=== PATIENT | female | born 1950 | race Caucasian/White ===

== ENCOUNTER 2022-08-02 19:25 | Emergency (ER) | payer OTHER, MEDICAID ==
[~2022-08-02] VITALS: Ht 154.9 cm; Wt 108.9 kg
[~2022-08-02 19:25] MED LIST: ALPR0.25 PO; AMOX875T2 PO; APIX5TAB4 PO; CARV6.2554 PO; ESOM20CA PO; FLEC50TA2 PO; FURO-150 PO; LIP40 PO; NEU300 PO; PRO20 PO
[2022-08-02 19:55] VITALS: BP_SYST 149
[2022-08-02 20:44] LABS: BASOPHILS % (AUTO) 0.5 % (0.0-2.0); EOSINOPHILS # (AUTO) 0.2 K/uL (0.0-0.4); EOSINOPHILS % (AUTO) 2.1 % (0.0-4.0); HEMATOCRIT 32.7 % (36-48); HEMOGLOBIN 10.8 g/dL (12.0-16.0); LYMPHOCYTES # (AUTO) 2.1 K/uL (1.0-5.5); LYMPHOCYTES % (AUTO) 29.3 % (20.5-51.5); MEAN CORPUSCULAR HEMOGLOBIN 27 pg (27-31); MEAN CORPUSCULAR HGB CONC 33 % (32-36); MEAN CORPUSCULAR VOLUME 82 fL (79.0-98.0); MONOCYTES % (AUTO) 13.8 % (1.7-9.3); NEUTROPHILS # (AUTO) 3.9 K/uL (1.8-7.7); NEUTROPHILS % (AUTO) 54.3 % (40.0-70.0); PLATELET COUNT (AUTO) 335 K/uL (130-430); RED BLOOD CELL COUNT(AUTO) 3.98 MIL/uL (4.2-6.2); RED CELL DISTRIBUTION WIDTH 16.3 % (9.0-15.0); WHITE BLOOD COUNT (AUTO) 7.1 K/uL (4.8-10.8)
[2022-08-02 20:55] LABS: ALANINE AMINOTRANSFERASE 24 U/L (12-78); ALBUMIN 3.2 g/dL (3.4-4.8); ANION GAP 8 (5-15); ASPARTATE AMINOTRANSFERASE 21 U/L (10-37); CALCIUM 8.7 mg/dL (8.4-11.0); CHLORIDE 100 mmol/L (98-107); CREATININE 0.87 mg/dL (0.55-1.30); GLUCOSE 100 mg/dL (70-99); LIPASE 63 U/L (73-393); TOTAL BILIRUBIN 0.3 mg/dL (0.0-1.0); UREA NITROGEN, BLOOD 17 mg/dL (8-21)
[2022-08-02] MEDS ORDERED: ONDANSETRON 4 MG ODT TAB PO ONE (21:45)
[2022-08-02] MEDS ORDERED: KETOROLAC TROMETHAMINE 60 MG/2 ML VIAL IM ONE (21:45)
[2022-08-02 21:53] LABS: BILIRUBIN,URINE NEGATIVE (NEGATIVE); BLOOD, URINE NEGATIVE (NEGATIVE); CLARITY/URINE CLEAR (CLEAR); COLOR,URINE YELLOW (YELLOW); GLUCOSE,URINE NEGATIVE (NEGATIVE); KETONES,URINE NEGATIVE (NEGATIVE); LEUKOCYTE ESTERASE ,URINE TRACE (NEGATIVE); NITRITE, URINE NEGATIVE (NEGATIVE); PROTEIN URINE NEGATIVE (NEGATIVE); UROBILINOGEN,URINE 0.2 (0.2-1.0)
[2022-08-02 22:05] LABS: BACTERIA,URINE None Seen /HPF (None Seen); RBC,URINE 0-3 /HPF (0-3); WBC,URINE 0-3 /HPF (0-3)
[2022-08-02] MEDS ORDERED: CIPR500T5 PO (22:18)
[2022-08-02] MEDS ORDERED: IBUP-1971 PO (22:18)
[2022-08-02] MEDS ORDERED: ONDA8TAB60 PO (22:18)
[2022-08-02 22:44] VITALS: BP_SYST 147
== END 2022-08-02 22:44 | disposition home or self-care (01) ==
LOC: SED 19:25
DX: R10.31 Right lower quadrant pain (principal); R19.7 Diarrhea, unspecified; I10 Essential (primary) hypertension; E11.9 Type 2 diabetes mellitus without complications; K21.9 Gastro-esophageal reflux disease without esophagitis; I48.91 Unspecified atrial fibrillation; E78.00 Pure hypercholesterolemia, unspecified; Z79.899 Other long term (current) drug therapy
CPT/HCPCS: 99285; 74176; 80053; 81000; 83690; 85025; 36415; 76376; 96372; Q0162; J1885

== ENCOUNTER 2022-08-04 19:14 | Inpatient (IN) | payer OTHER, MEDICAID ==
[~2022-08-04] VITALS: Ht 154.9 cm; Wt 110.7 kg
[~2022-08-04 19:14] MED LIST changes: +CIPR500T5 PO; +IBUP-1971 PO; +ONDA8TAB60 PO
[2022-08-04 19:43] VITALS: BP_SYST 142
[2022-08-04] MEDS ORDERED: NITROGLYCERIN 0.4 MG TAB.SUBL SL ONE (20:15)
[2022-08-04 20:23] LABS: BASOPHILS % (AUTO) 0.4 % (0.0-2.0); EOSINOPHILS # (AUTO) 0.1 K/uL (0.0-0.4); EOSINOPHILS % (AUTO) 1.7 % (0.0-4.0); HEMATOCRIT 29.4 % (36-48); HEMOGLOBIN 9.8 g/dL (12.0-16.0); LYMPHOCYTES # (AUTO) 1.6 K/uL (1.0-5.5); LYMPHOCYTES % (AUTO) 20.3 % (20.5-51.5); MEAN CORPUSCULAR HEMOGLOBIN 28 pg (27-31); MEAN CORPUSCULAR HGB CONC 33 % (32-36); MEAN CORPUSCULAR VOLUME 83 fL (79.0-98.0); MONOCYTES % (AUTO) 13.1 % (1.7-9.3); NEUTROPHILS # (AUTO) 5.1 K/uL (1.8-7.7); NEUTROPHILS % (AUTO) 64.5 % (40.0-70.0); PLATELET COUNT (AUTO) 261 K/uL (130-430); RED BLOOD CELL COUNT(AUTO) 3.56 MIL/uL (4.2-6.2); RED CELL DISTRIBUTION WIDTH 16.3 % (9.0-15.0); WHITE BLOOD COUNT (AUTO) 7.8 K/uL (4.8-10.8)
[2022-08-04 20:51] LABS: ANION GAP 9 (5-15); CALCIUM 8.1 mg/dL (8.4-11.0); CHLORIDE 98 mmol/L (98-107); CREATININE 0.95 mg/dL (0.55-1.30); GLUCOSE 285 mg/dL (70-99); UREA NITROGEN, BLOOD 20 mg/dL (8-21)
[2022-08-04 20:58] LABS: ALANINE AMINOTRANSFERASE 19 U/L (12-78); ASPARTATE AMINOTRANSFERASE 12 U/L (10-37); TOTAL BILIRUBIN 0.4 mg/dL (0.0-1.0)
[2022-08-04] MEDS ORDERED: FUROSEMIDE 40 MG/4 ML VIAL IVP ONE (21:15)
[2022-08-04] MEDS ORDERED: LEVO125T PO (22:07)
[2022-08-04] MEDS ORDERED: FLEC100T2 PO (22:07)
[2022-08-04] MEDS ORDERED: EXEN2AUT SQ (22:07)
[2022-08-04] MEDS ORDERED: PRO20 PO (22:07)
[2022-08-04] MEDS ORDERED: LYR50 PO (22:07)
[2022-08-04] MEDS ORDERED: METF-518 PO (22:07)
[2022-08-04] MEDS ORDERED: FURO-149 PO (22:07)
[2022-08-04] MEDS ORDERED: ROPI2TAB29 PO (22:07)
[2022-08-04] MEDS ORDERED: ESOM20CA38 PO (22:07)
[2022-08-04] MEDS ORDERED: INSU100V7 SUBCUT (22:07)
[2022-08-04] MEDS ORDERED: LISI20TA30 PO (22:07)
[2022-08-04] MEDS ORDERED: METO-290 PO (22:07)
[2022-08-04] MEDS ORDERED: ZOLP10TA2 PO (22:07)
[2022-08-04] MEDS ORDERED: QUET400T PO (22:07)
[2022-08-04 23:08] VITALS: BP_SYST 144
[2022-08-04 23:30] VITALS: BP_SYST 144
[2022-08-05] MEDS ORDERED: ALPRAZolam 0.25 MG TABLET PO PRN (03:30)
[2022-08-05] MEDS ORDERED: ACETAMINOPHEN 325 MG TABLET PO PRN (03:30)
[2022-08-05 05:51] LABS: BASOPHILS % (AUTO) 0.4 % (0.0-2.0); EOSINOPHILS # (AUTO) 0.2 K/uL (0.0-0.4); EOSINOPHILS % (AUTO) 2.2 % (0.0-4.0); HEMATOCRIT 29.6 % (36-48); HEMOGLOBIN 9.6 g/dL (12.0-16.0); LYMPHOCYTES # (AUTO) 1.9 K/uL (1.0-5.5); LYMPHOCYTES % (AUTO) 25.2 % (20.5-51.5); MEAN CORPUSCULAR HEMOGLOBIN 27 pg (27-31); MEAN CORPUSCULAR HGB CONC 33 % (32-36); MEAN CORPUSCULAR VOLUME 83 fL (79.0-98.0); MONOCYTES # (AUTO) 1.2 K/uL (0.0-1.0); MONOCYTES % (AUTO) 15.9 % (1.7-9.3); NEUTROPHILS # (AUTO) 4.2 K/uL (1.8-7.7); NEUTROPHILS % (AUTO) 56.3 % (40.0-70.0); PLATELET COUNT (AUTO) 245 K/uL (130-430); RED BLOOD CELL COUNT(AUTO) 3.57 MIL/uL (4.2-6.2); RED CELL DISTRIBUTION WIDTH 16.3 % (9.0-15.0); WHITE BLOOD COUNT (AUTO) 7.5 K/uL (4.8-10.8)
[2022-08-05 05:57] LABS: ANION GAP 7 (5-15); CALCIUM 8.1 mg/dL (8.4-11.0); CHLORIDE 102 mmol/L (98-107); CREATININE 0.83 mg/dL (0.55-1.30); GLUCOSE 200 mg/dL (70-99); UREA NITROGEN, BLOOD 16 mg/dL (8-21)
[2022-08-05] MEDS: NORMAL SALINE 5 ML DISP.SYRIN IVF SCH ×3 (06:38→21:25)
[2022-08-05] MEDS: LEVOTHYROXINE SODIUM 0.075 MG TABLET PO SCH (06:39)
[2022-08-05] MEDS: LEVOTHYROXINE SODIUM 0.1 MG TABLET PO SCH (06:40)
[2022-08-05] MEDS: INSULIN REGULAR, HUMAN 100 UNITS/ML, 3 ML VIAL (humuLIN R) SUBCUT PRN ×4 (06:42→20:56)
[2022-08-05] MEDS ORDERED: LEVOTHYROXINE SODIUM 0.125 MG TABLET PO SCH (07:00)
[2022-08-05] MEDS ORDERED: EXENATIDE SUBCUT SCH (07:00)
[2022-08-05 07:30] VITALS: BP_SYST 148
[2022-08-05] MEDS: ONDANSETRON HCL 4 MG/2 ML VIAL IVP PRN ×2 (08:18→17:34)
[2022-08-05] MEDS: MORPHINE 2 MG/ML INJ. SYRINGE IVP PRN ×2 (08:19→17:36)
[2022-08-05 08:22] VITALS: BP_SYST 142
[2022-08-05] MEDS ORDERED: FLECAINIDE ACETATE 50 MG TABLET (TAMBOCOR) PO SCH (09:00)
[2022-08-05] MEDS ORDERED: CARVEDILOL 6.25 MG TABLET (COREG) PO SCH (09:00)
[2022-08-05] MEDS ORDERED: FUROSEMIDE 40 MG TABLET PO SCH (09:00)
[2022-08-05] MEDS: METOPROLOL SUCCINATE 25 MG TAB.SR.24H (TOPROL XL) PO SCH (09:07)
[2022-08-05] MEDS: PREGABALIN 25 MG CAPSULE (LYRICA) PO SCH ×2 (09:08→20:44)
[2022-08-05] MEDS: APIXABAN 2.5 MG TABLET PO SCH ×2 (09:09→20:53)
[2022-08-05] MEDS: FLUoxetine HCL 20 MG CAPSULE (PROzac) PO SCH (09:11)
[2022-08-05] MEDS: GABAPENTIN 300 MG CAPSULE PO SCH ×3 (09:12→20:44)
[2022-08-05] MEDS: METOCLOPRAMIDE HCL 10 MG TABLET PO SCH (09:13)
[2022-08-05] MEDS: PANTOPRAZOLE SODIUM 40 MG TAB PO SCH (09:14)
[2022-08-05] MEDS: LORazepam 2 MG/ML VIAL IVP PRN (11:11)
[2022-08-05 11:33] VITALS: BP_SYST 150
[2022-08-05 16:48] VITALS: BP_SYST 133
[2022-08-05] MEDS: FUROSEMIDE 40 MG/4 ML VIAL IVP SCH (16:57)
[2022-08-05 20:15] VITALS: BP_SYST 97
[2022-08-05] MEDS: ZOLPIDEM TARTRATE 5 MG TABLET PO PRN (20:44)
[2022-08-05] MEDS: roPINIRole HCL 0.25 MG ( REQUIP )TABLET PO SCH (20:44)
[2022-08-05] MEDS: QUEtiapine FUMARATE 100 MG TABLET PO SCH (20:44)
[2022-08-05] MEDS: lisinopriL 20 MG TABLET PO SCH (20:45)
[2022-08-05] MEDS: ATORVASTATIN 20 MG TABLET PO SCH (20:45)
[2022-08-06 00:25] VITALS: BP_SYST 126
[2022-08-06 05:07] LABS: BASOPHILS % (AUTO) 0.2 % (0.0-2.0); EOSINOPHILS # (AUTO) 0.2 K/uL (0.0-0.4); EOSINOPHILS % (AUTO) 2.9 % (0.0-4.0); HEMATOCRIT 29.1 % (36-48); HEMOGLOBIN 9.6 g/dL (12.0-16.0); LYMPHOCYTES # (AUTO) 2.1 K/uL (1.0-5.5); LYMPHOCYTES % (AUTO) 35.7 % (20.5-51.5); MEAN CORPUSCULAR HEMOGLOBIN 27 pg (27-31); MEAN CORPUSCULAR HGB CONC 33 % (32-36); MEAN CORPUSCULAR VOLUME 82 fL (79.0-98.0); MONOCYTES % (AUTO) 16.8 % (1.7-9.3); NEUTROPHILS # (AUTO) 2.6 K/uL (1.8-7.7); NEUTROPHILS % (AUTO) 44.4 % (40.0-70.0); PLATELET COUNT (AUTO) 260 K/uL (130-430); RED BLOOD CELL COUNT(AUTO) 3.55 MIL/uL (4.2-6.2); RED CELL DISTRIBUTION WIDTH 16.5 % (9.0-15.0); WHITE BLOOD COUNT (AUTO) 5.8 K/uL (4.8-10.8)
[2022-08-06 05:29] LABS: ALANINE AMINOTRANSFERASE 19 U/L (12-78); ALBUMIN 2.7 g/dL (3.4-4.8); ANION GAP 6 (5-15); ASPARTATE AMINOTRANSFERASE 12 U/L (10-37); CALCIUM 8.2 mg/dL (8.4-11.0); CHLORIDE 96 mmol/L (98-107); CREATININE 0.99 mg/dL (0.55-1.30); GLUCOSE 172 mg/dL (70-99); TOTAL BILIRUBIN 0.5 mg/dL (0.0-1.0); UREA NITROGEN, BLOOD 17 mg/dL (8-21)
[2022-08-06 06:00] VITALS: BP_SYST 124
[2022-08-06] MEDS: LEVOTHYROXINE SODIUM 0.1 MG TABLET PO SCH (06:12)
[2022-08-06] MEDS: LEVOTHYROXINE SODIUM 0.075 MG TABLET PO SCH (06:12)
[2022-08-06] MEDS: NORMAL SALINE 5 ML DISP.SYRIN IVF SCH ×3 (06:13→22:00)
[2022-08-06] MEDS: FUROSEMIDE 40 MG/4 ML VIAL IVP SCH (06:14)
[2022-08-06] MEDS: INSULIN REGULAR, HUMAN 100 UNITS/ML, 3 ML VIAL (humuLIN R) SUBCUT PRN ×3 (06:26→17:04)
[2022-08-06 07:39] VITALS: BP_SYST 107
[2022-08-06] MEDS: METOCLOPRAMIDE HCL 10 MG TABLET PO SCH (08:40)
[2022-08-06] MEDS: PREGABALIN 25 MG CAPSULE (LYRICA) PO SCH ×2 (08:41→21:32)
[2022-08-06] MEDS: GABAPENTIN 300 MG CAPSULE PO SCH ×3 (08:42→21:32)
[2022-08-06] MEDS: PANTOPRAZOLE SODIUM 40 MG TAB PO SCH (08:42)
[2022-08-06] MEDS: FLUoxetine HCL 20 MG CAPSULE (PROzac) PO SCH (08:42)
[2022-08-06] MEDS: METOPROLOL SUCCINATE 25 MG TAB.SR.24H (TOPROL XL) PO SCH (08:43)
[2022-08-06] MEDS: FLECAINIDE ACETATE 50 MG TABLET (TAMBOCOR) PO SCH (08:43)
[2022-08-06] MEDS: APIXABAN 2.5 MG TABLET PO SCH ×2 (08:44→21:30)
[2022-08-06] MEDS: MORPHINE 2 MG/ML INJ. SYRINGE IVP PRN ×2 (09:08→21:33)
[2022-08-06 11:30] VITALS: BP_SYST 111
[2022-08-06 15:36] VITALS: BP_SYST 126
[2022-08-06 20:00] VITALS: BP_SYST 117
[2022-08-06] MEDS: roPINIRole HCL 0.25 MG ( REQUIP )TABLET PO SCH (21:27)
[2022-08-06] MEDS: ATORVASTATIN 20 MG TABLET PO SCH (21:28)
[2022-08-06] MEDS: QUEtiapine FUMARATE 100 MG TABLET PO SCH (21:31)
[2022-08-06] MEDS: lisinopriL 20 MG TABLET PO SCH (21:39)
[2022-08-07] VITALS: BP_SYST 121
[2022-08-07 04:10] LABS: BASOPHILS % (AUTO) 0.4 % (0.0-2.0); EOSINOPHILS # (AUTO) 0.1 K/uL (0.0-0.4); EOSINOPHILS % (AUTO) 1.8 % (0.0-4.0); HEMATOCRIT 28.1 % (36-48); HEMOGLOBIN 9.4 g/dL (12.0-16.0); LYMPHOCYTES # (AUTO) 2.4 K/uL (1.0-5.5); LYMPHOCYTES % (AUTO) 28.4 % (20.5-51.5); MEAN CORPUSCULAR HEMOGLOBIN 28 pg (27-31); MEAN CORPUSCULAR HGB CONC 33 % (32-36); MEAN CORPUSCULAR VOLUME 83 fL (79.0-98.0); MONOCYTES # (AUTO) 1.2 K/uL (0.0-1.0); MONOCYTES % (AUTO) 14.6 % (1.7-9.3); NEUTROPHILS # (AUTO) 4.6 K/uL (1.8-7.7); NEUTROPHILS % (AUTO) 54.8 % (40.0-70.0); PLATELET COUNT (AUTO) 252 K/uL (130-430); WHITE BLOOD COUNT (AUTO) 8.4 K/uL (4.8-10.8)
[2022-08-07 04:18] LABS: ANION GAP 4 (5-15); CALCIUM 8.4 mg/dL (8.4-11.0); CHLORIDE 95 mmol/L (98-107); CREATININE 1.08 mg/dL (0.55-1.30); GLUCOSE 285 mg/dL (70-99); UREA NITROGEN, BLOOD 21 mg/dL (8-21)
[2022-08-07] MEDS: NORMAL SALINE 5 ML DISP.SYRIN IVF SCH ×3 (04:57→21:05)
[2022-08-07] MEDS: INSULIN REGULAR, HUMAN 100 UNITS/ML, 3 ML VIAL (humuLIN R) SUBCUT PRN ×4 (06:00→21:28)
[2022-08-07 07:51] VITALS: BP_SYST 123
[2022-08-07] MEDS: FUROSEMIDE 20 MG TABLET PO SCH (08:58)
[2022-08-07] MEDS: FLUoxetine HCL 20 MG CAPSULE (PROzac) PO SCH (08:58)
[2022-08-07] MEDS: PANTOPRAZOLE SODIUM 40 MG TAB PO SCH (08:59)
[2022-08-07] MEDS: GABAPENTIN 300 MG CAPSULE PO SCH ×3 (08:59→21:00)
[2022-08-07] MEDS: METOCLOPRAMIDE HCL 10 MG TABLET PO SCH (08:59)
[2022-08-07] MEDS: PREGABALIN 25 MG CAPSULE (LYRICA) PO SCH ×2 (09:00→21:02)
[2022-08-07] MEDS: FLECAINIDE ACETATE 50 MG TABLET (TAMBOCOR) PO SCH (09:01)
[2022-08-07] MEDS: METOPROLOL SUCCINATE 25 MG TAB.SR.24H (TOPROL XL) PO SCH (09:02)
[2022-08-07] MEDS: APIXABAN 2.5 MG TABLET PO SCH ×2 (09:03→21:03)
[2022-08-07 11:21] VITALS: BP_SYST 104
[2022-08-07] MEDS: MORPHINE 2 MG/ML INJ. SYRINGE IVP PRN (15:54)
[2022-08-07 16:01] VITALS: BP_SYST 116
[2022-08-07 20:30] VITALS: BP_SYST 124
[2022-08-07] MEDS: roPINIRole HCL 0.25 MG ( REQUIP )TABLET PO SCH (21:00)
[2022-08-07] MEDS: lisinopriL 20 MG TABLET PO SCH (21:00)
[2022-08-07] MEDS: ATORVASTATIN 20 MG TABLET PO SCH (21:01)
[2022-08-07] MEDS: ZOLPIDEM TARTRATE 5 MG TABLET PO PRN (21:02)
[2022-08-07] MEDS: QUEtiapine FUMARATE 100 MG TABLET PO SCH (21:28)
[2022-08-08] MEDS: LORazepam 2 MG/ML VIAL IVP PRN (00:55)
[2022-08-08 01:27] VITALS: BP_SYST 159
[2022-08-08 05:46] LABS: BASOPHILS % (AUTO) 0.6 % (0.0-2.0); EOSINOPHILS # (AUTO) 0.2 K/uL (0.0-0.4); EOSINOPHILS % (AUTO) 2.4 % (0.0-4.0); HEMATOCRIT 30.5 % (36-48); HEMOGLOBIN 9.9 g/dL (12.0-16.0); LYMPHOCYTES # (AUTO) 2.2 K/uL (1.0-5.5); LYMPHOCYTES % (AUTO) 28.8 % (20.5-51.5); MEAN CORPUSCULAR HEMOGLOBIN 27 pg (27-31); MEAN CORPUSCULAR HGB CONC 33 % (32-36); MEAN CORPUSCULAR VOLUME 82 fL (79.0-98.0); MONOCYTES # (AUTO) 0.9 K/uL (0.0-1.0); MONOCYTES % (AUTO) 11.7 % (1.7-9.3); NEUTROPHILS # (AUTO) 4.3 K/uL (1.8-7.7); NEUTROPHILS % (AUTO) 56.5 % (40.0-70.0); PLATELET COUNT (AUTO) 271 K/uL (130-430); RED CELL DISTRIBUTION WIDTH 16.5 % (9.0-15.0); WHITE BLOOD COUNT (AUTO) 7.6 K/uL (4.8-10.8)
[2022-08-08] MEDS: LEVOTHYROXINE SODIUM 0.075 MG TABLET PO SCH (06:24)
[2022-08-08] MEDS: LEVOTHYROXINE SODIUM 0.1 MG TABLET PO SCH ×2 (06:25→06:29)
[2022-08-08] MEDS: NORMAL SALINE 5 ML DISP.SYRIN IVF SCH ×2 (06:26→15:32)
[2022-08-08] MEDS: INSULIN REGULAR, HUMAN 100 UNITS/ML, 3 ML VIAL (humuLIN R) SUBCUT PRN ×3 (06:28→17:03)
[2022-08-08 06:42] LABS: ANION GAP 6 (5-15); CALCIUM 8.8 mg/dL (8.4-11.0); CHLORIDE 96 mmol/L (98-107); CREATININE 0.86 mg/dL (0.55-1.30); FREE T4 (FREE THYROXINE) 0.9 ng/dL (0.6-1.6); GLUCOSE 270 mg/dL (70-99); THYROID STIMULATING HORMONE 2.77 uIu/mL (0.34-4.82); UREA NITROGEN, BLOOD 16 mg/dL (8-21)
[2022-08-08 08:10] VITALS: BP_SYST 145
[2022-08-08] MEDS: FLUoxetine HCL 20 MG CAPSULE (PROzac) PO SCH (08:50)
[2022-08-08] MEDS: GABAPENTIN 300 MG CAPSULE PO SCH ×2 (08:51→15:30)
[2022-08-08] MEDS: FUROSEMIDE 20 MG TABLET PO SCH (08:52)
[2022-08-08] MEDS: APIXABAN 2.5 MG TABLET PO SCH (08:53)
[2022-08-08] MEDS: PANTOPRAZOLE SODIUM 40 MG TAB PO SCH (08:54)
[2022-08-08] MEDS: METOCLOPRAMIDE HCL 10 MG TABLET PO SCH (08:54)
[2022-08-08] MEDS: METOPROLOL SUCCINATE 25 MG TAB.SR.24H (TOPROL XL) PO SCH (08:54)
[2022-08-08] MEDS: PREGABALIN 25 MG CAPSULE (LYRICA) PO SCH (08:57)
[2022-08-08] MEDS: FLECAINIDE ACETATE 50 MG TABLET (TAMBOCOR) PO SCH (09:07)
[2022-08-08] MEDS ORDERED: METO-540 PO (10:32)
[2022-08-08 11:20] VITALS: BP_SYST 129
[2022-08-08 11:25] VITALS: BP_SYST 138
[2022-08-08 15:01] VITALS: BP_SYST 138
[2022-08-08] MEDS: MORPHINE 2 MG/ML INJ. SYRINGE IVP PRN (17:04)
== END 2022-08-08 18:34 | disposition home or self-care (01) | DRG 189 ==
LOC: SED 19:14 → STU 21:24 → SMU 22:54 → STU 23:00 → SMU 08-07 15:14
PROVIDERS: ADMIT Preventive Medicine Preventive Medicine/Occupational Environmental Medicine; ATTEND Preventive Medicine Preventive Medicine/Occupational Environmental Medicine
DX: J96.01 Acute respiratory failure with hypoxia (principal); J81.1 Chronic pulmonary edema; I11.0 Hypertensive heart disease with heart failure; M94.0 Chondrocostal junction syndrome [Tietze]; I50.9 Heart failure, unspecified; I48.91 Unspecified atrial fibrillation; E11.9 Type 2 diabetes mellitus without complications; Z20.822 Contact with and (suspected) exposure to COVID-19
CPT/HCPCS: 36415; 71045; 80048; 80053; 83735; 83880; 84100; 84439; 84443; 84484; 85025; 93005; 93306; 93970; 97116-GP; 97530-GP; 99285; G0378; J1815; J1940; J2060; J2270; J2405; J8597

== ENCOUNTER 2022-08-16 19:24 | Inpatient (IN) | payer OTHER, MEDICAID ==
[~2022-08-16] VITALS: Ht 154.9 cm; Wt 109.3 kg
[~2022-08-16 19:24] MED LIST changes: +ESOM20CA38 PO; +EXEN2AUT SQ; +FLEC100T2 PO; +FURO-149 PO; +INSU100V7 SUBCUT; +LEVO125T PO; +LISI20TA30 PO; +LYR50 PO; +METF-518 PO; +METO-290 PO; +METO-540 PO; +QUET400T PO; +ROPI2TAB29 PO; +ZOLP10TA2 PO
[2022-08-16 19:38] VITALS: BP_SYST 132
--- NOTE | 2022-08-16 19:53 | NUR ---
PATIENT PRESENTS WITH PALIPITATIONS (HX AFIB), DIARRHEA, SOB, VITALS ARE STABLE
[2022-08-16 20:44] LABS: BASOPHILS % (AUTO) 0.4 % (0.0-2.0); EOSINOPHILS # (AUTO) 0.2 K/uL (0.0-0.4); EOSINOPHILS % (AUTO) 1.8 % (0.0-4.0); HEMATOCRIT 32.8 % (36-48); HEMOGLOBIN 10.8 g/dL (12.0-16.0); LYMPHOCYTES # (AUTO) 2.2 K/uL (1.0-5.5); LYMPHOCYTES % (AUTO) 24.7 % (20.5-51.5); MEAN CORPUSCULAR HEMOGLOBIN 27 pg (27-31); MEAN CORPUSCULAR HGB CONC 33 % (32-36); MEAN CORPUSCULAR VOLUME 83 fL (79.0-98.0); NEUTROPHILS # (AUTO) 5.5 K/uL (1.8-7.7); NEUTROPHILS % (AUTO) 62.1 % (40.0-70.0); PLATELET COUNT (AUTO) 354 K/uL (130-430); RED BLOOD CELL COUNT(AUTO) 3.97 MIL/uL (4.2-6.2); RED CELL DISTRIBUTION WIDTH 16.4 % (9.0-15.0); WHITE BLOOD COUNT (AUTO) 8.9 K/uL (4.8-10.8)
--- NOTE | 2022-08-16 21:02 | NUR ---
Placed in room 7 . Placed on traffic monitor specialist, blood pressure machine and pulse oximeter. To gown for exam. Side rails up. Report given to OSCAR ROBERTS.
--- NOTE | 2022-08-16 21:05 | NUR ---
ER at bedside examining patient.
[2022-08-16 21:10] LABS: ANION GAP 6 (5-15); CALCIUM 8.3 mg/dL (8.4-11.0); CHLORIDE 97 mmol/L (98-107); CREATININE 1.02 mg/dL (0.55-1.30); GLUCOSE 180 mg/dL (70-99); UREA NITROGEN, BLOOD 19 mg/dL (8-21)
--- NOTE | 2022-08-16 21:13 | NUR ---
Patient arrived to ED 7 for c/o heart palpitations and diarrhea. Patient had diarrhea intermittently 10 am on and off that black stool. Patient said that she was recently released from hospital on 08/08 for CHF. Patient said she had heart palpitations starting at 11 am off and on in the bathroom. Patient took imodium OTC and her "regular medications during the day, but can't remember off top of her head." Patient resting at the moment. Alert and oriented x4. Respiration even and unlabored.
[2022-08-16] MEDS ORDERED: PANTOPRAZOLE SODIUM 40 MG/VIAL (PROTONIX) IVP ONE (21:15)
[2022-08-16 21:28] LABS: ALANINE AMINOTRANSFERASE 17 U/L (12-78); ALBUMIN 3.1 g/dL (3.4-4.8); ASPARTATE AMINOTRANSFERASE 11 U/L (10-37); TOTAL BILIRUBIN 0.4 mg/dL (0.0-1.0)
--- NOTE | 2022-08-16 21:56 | NUR ---
Admit bed requested Patient will be admitted to care of . Admitted to TELE unit. Diagnosis GI BLEED Inpatient (Yes or No) YES Observation (Yes or No) NO Orientation concerns or request close to nursing station (Yes or No) NO Covid Status N/A On vent or bipap NO Isolation requirements NO Needs a sitter NO From Home (Yes or if No enter name of facility) YES Requires Dialysis (Yes or No) NO Med Rec Completed (Yes of No) YES
[2022-08-16] MEDS ORDERED: D5/0.45 NS 1,000 ML IV ONE (22:00)
[2022-08-16] MEDS ORDERED: INSU100I4 SUBQ (22:04)
[2022-08-16] MEDS ORDERED: INSU100V38 SQ (22:04)
[2022-08-16 22:48] LABS: BILIRUBIN,URINE NEGATIVE (NEGATIVE); COLOR,URINE YELLOW (YELLOW); GLUCOSE,URINE TRACE (NEGATIVE); KETONES,URINE NEGATIVE (NEGATIVE); LEUKOCYTE ESTERASE ,URINE TRACE (NEGATIVE); NITRITE, URINE NEGATIVE (NEGATIVE); PROTEIN URINE NEGATIVE (NEGATIVE); UROBILINOGEN,URINE 0.2 (0.2-1.0)
[2022-08-16 22:58] LABS: BLOOD, URINE TRACE (NEGATIVE); CLARITY/URINE SLIGHTLY CLOUDY (CLEAR)
[2022-08-16 23:33] LABS: BACTERIA,URINE MODERATE /HPF (None Seen)
--- NOTE | 2022-08-17 00:21 | NUR ---
Patient will be admitted to care of ALEJANDRA Holden. Admitted to unit. Will go to room . Belongings list completed. Complete and up to date summary report printed. SBAR report to be given at bedside with opportunity for questions.
--- NOTE | 2022-08-17 00:21 | NUR ---
Patient didn't want to change into hospital gown.
--- NOTE | 2022-08-17 00:28 | NUR ---
INITIAL ASSESSMENT NOTES; admitted a72 y/o female from ER with DX GIB, had dark loose stool today with palpitations, no diarrhea during stay in ER. pt. oriented to room , use of call light. denies any pain at this time. placed on electronic tester. call light within reach.
[2022-08-17 00:41] VITALS: BP_SYST 141
--- NOTE | 2022-08-17 02:00 | NUR ---
NOTES: pt. checked, been sleeping. oil dispatcher shows sinus rhythm. IVF infusing.
--- NOTE | 2022-08-17 04:54 | NUR ---
CONSULTATION PAGED/CALLED Reason for Consultation: GI BLEED Person Who was Notified: ARTEMIO Consulting Physician: OBEY Tomato Grader Specialty: GI Ordering Physician: SHEILA
--- NOTE | 2022-08-17 05:00 | NUR ---
NOTES: GI consult with Dr. Jameson today. noted multiple bruising on upper and lower extremities. on clear liquid.
--- NOTE | 2022-08-17 08:00 | NUR ---
Resting with no complaints,tolerating diet ,continue with plan of care.
[2022-08-17] MEDS ORDERED: PANTOPRAZOLE SODIUM 40 MG/VIAL (PROTONIX) IVP ONE (09:45)
[2022-08-17 11:23] VITALS: BP_SYST 141
[2022-08-17] MEDS: INSULIN REGULAR, HUMAN 100 UNITS/ML, 3 ML VIAL (humuLIN R) SUBCUT PRN ×3 (11:57→20:42)
[2022-08-17 13:37] LABS: BASOPHILS # (AUTO) 0.1 K/uL (0.0-0.2); EOSINOPHILS # (AUTO) 0.2 K/uL (0.0-0.4); EOSINOPHILS % (AUTO) 2.7 % (0.0-4.0); HEMATOCRIT 32.5 % (36-48); HEMOGLOBIN 10.6 g/dL (12.0-16.0); LYMPHOCYTES % (AUTO) 29.4 % (20.5-51.5); MEAN CORPUSCULAR HEMOGLOBIN 27 pg (27-31); MEAN CORPUSCULAR HGB CONC 33 % (32-36); MEAN CORPUSCULAR VOLUME 84 fL (79.0-98.0); MONOCYTES # (AUTO) 0.7 K/uL (0.0-1.0); MONOCYTES % (AUTO) 10.5 % (1.7-9.3); NEUTROPHILS # (AUTO) 3.9 K/uL (1.8-7.7); NEUTROPHILS % (AUTO) 56.4 % (40.0-70.0); PLATELET COUNT (AUTO) 292 K/uL (130-430); RED BLOOD CELL COUNT(AUTO) 3.89 MIL/uL (4.2-6.2); RED CELL DISTRIBUTION WIDTH 16.2 % (9.0-15.0)
[2022-08-17 13:52] LABS: ALANINE AMINOTRANSFERASE 16 U/L (12-78); ALBUMIN 2.9 g/dL (3.4-4.8); ANION GAP 9 (5-15); ASPARTATE AMINOTRANSFERASE 10 U/L (10-37); CALCIUM 8.1 mg/dL (8.4-11.0); CHLORIDE 100 mmol/L (98-107); CREATININE 0.87 mg/dL (0.55-1.30); GLUCOSE 303 mg/dL (70-99); TOTAL BILIRUBIN 0.4 mg/dL (0.0-1.0); UREA NITROGEN, BLOOD 13 mg/dL (8-21)
[2022-08-17] MEDS ORDERED: INSULIN REGULAR, HUMAN 100 UNITS/ML, 3 ML VIAL SUBCUT PRN (14:30)
[2022-08-17] MEDS ORDERED: ALPRAZolam 0.25 MG TABLET PO ONE (14:30)
[2022-08-17] MEDS ORDERED: FLUoxetine HCL 20 MG CAPSULE (PROzac) PO ONE (14:30)
[2022-08-17] MEDS: ACETAMINOPHEN 325 MG TABLET PO PRN (14:36)
[2022-08-17 15:31] VITALS: BP_SYST 161
--- NOTE | 2022-08-17 16:00 | NUR ---
Reported off to August RN,medicated once for complaints of headache per new order,medicated for complaints of anxiety ,results pending, diet progressed and morning labs per new order,had one large BM with a mixture of black and brown stool,ambulated and up in chair, continue with plan of care.
--- NOTE | 2022-08-17 16:10 | NUR ---
RECEIVED PT FROM ALEJANDRA ZARAGOZA. PT RESTING ON CHAIR. DENIES ANY ACUTE DISTRESS OR PAIN. MANDUJANO DRAINING BY GRAVITY, IV SL REMAIN INTACT AND PATENT. NO IV INFILTRATION OR INFECTION NOTED. CALL LIGHT WITHIN REACH. ENCOURAGED PT TO USE CALL LIGHT FOR ASSISTANCE. WILL CONT TO MONITOR FOR ANY CHANGES
--- NOTE | 2022-08-17 18:00 | NUR ---
NOTES; PT VERBALIZES THAT SHE WANTS TO GET EGD PROCEDURE. WILL BENITO RajanI DOCTOR
--- NOTE | 2022-08-17 18:08 | NUR ---
CASEY AGEE GOLD MINER BLASTING DR MINA , GOLD MINER BLASTING FOR DR BARNHART WAS PAGED, RE: TO NOTIFY THAT PT AGREED TO THE EGD PROCEDURE. SPOKE TO IVANA.
--- NOTE | 2022-08-17 18:50 | NUR ---
CLOSING NOTE; PT RESTING ON CHAIR. DENIES ANY ACUTE DISTRESS OR PAIN. MANDUJANO DRAINING BY GRAVITY, IV SL REMAIN INTACT AND PATENT. NO IV INFILTRATION OR INFECTION NOTED. CALL LIGHT WITHIN REACH. ENCOURAGED PT TO USE CALL LIGHT FOR ASSISTANCE. WILL ENDORSE CARE TO TICKET DISPATCHER NURSE
[2022-08-17 20:30] VITALS: BP_SYST 137
[2022-08-17] MEDS: PANTOPRAZOLE SODIUM 40 MG/VIAL (PROTONIX) IVP SCH (20:36)
[2022-08-17] MEDS: ZOLPIDEM TARTRATE 5 MG TABLET PO PRN (20:38)
[2022-08-17] MEDS: PREGABALIN 25 MG CAPSULE (LYRICA) PO SCH (20:38)
[2022-08-17] MEDS: ATORVASTATIN 20 MG TABLET PO SCH (20:39)
[2022-08-17] MEDS ORDERED: CARVEDILOL 6.25 MG TABLET (COREG) PO SCH (21:00)
--- NOTE | 2022-08-17 21:09 | NUR ---
DR BARNHART PAGED CALLED [phone] TOSCANO MOBILE SALES ASSISTANT
--- NOTE | 2022-08-17 22:25 | NUR ---
spoke with DR EVERTON AGEE & UPDATED PATIENT HAS CHANGED HER MIND AND WILL DO THE GI PROCEDURE EGD , DR TOSCANO stated will see patient in the AM / .
[2022-08-18 00:26] VITALS: BP_SYST 158
--- NOTE | 2022-08-18 03:06 | NUR ---
Hourly Rounding patient is resting HOB elevated is verbally Responsive call jernigan given to patient BED ALARM IS ON / .
--- NOTE | 2022-08-18 04:02 | NUR ---
AMBIEN po given for sleep aide & helpful , patient is resting .
[2022-08-18] MEDS: INSULIN REGULAR, HUMAN 100 UNITS/ML, 3 ML VIAL (humuLIN R) SUBCUT PRN ×4 (05:53→21:40)
[2022-08-18] MEDS: LEVOTHYROXINE SODIUM 0.075 MG TABLET PO SCH (06:11)
[2022-08-18] MEDS: LEVOTHYROXINE SODIUM 0.1 MG TABLET PO SCH (06:11)
[2022-08-18 06:31] LABS: BASOPHILS % (AUTO) 0.6 % (0.0-2.0); EOSINOPHILS # (AUTO) 0.2 K/uL (0.0-0.4); EOSINOPHILS % (AUTO) 2.9 % (0.0-4.0); HEMATOCRIT 33.5 % (36-48); LYMPHOCYTES # (AUTO) 2.2 K/uL (1.0-5.5); MEAN CORPUSCULAR HEMOGLOBIN 27 pg (27-31); MEAN CORPUSCULAR HGB CONC 33 % (32-36); MEAN CORPUSCULAR VOLUME 83 fL (79.0-98.0); MONOCYTES # (AUTO) 0.8 K/uL (0.0-1.0); MONOCYTES % (AUTO) 10.6 % (1.7-9.3); NEUTROPHILS # (AUTO) 4.6 K/uL (1.8-7.7); NEUTROPHILS % (AUTO) 57.9 % (40.0-70.0); PLATELET COUNT (AUTO) 323 K/uL (130-430); RED BLOOD CELL COUNT(AUTO) 4.04 MIL/uL (4.2-6.2); RED CELL DISTRIBUTION WIDTH 16.2 % (9.0-15.0)
[2022-08-18 06:44] LABS: ANION GAP 10 (5-15); CALCIUM 8.7 mg/dL (8.4-11.0); CHLORIDE 99 mmol/L (98-107); CREATININE 0.76 mg/dL (0.55-1.30); GLUCOSE 251 mg/dL (70-99); UREA NITROGEN, BLOOD 11 mg/dL (8-21)
[2022-08-18 08:00] VITALS: BP_SYST 152
--- NOTE | 2022-08-18 08:00 | NUR ---
OPENING ALERT AND ORIENTED. DENIES ANY SHORTNESS OF BREATH OR PAIN. SAFETY CHECKS DONE.
[2022-08-18] MEDS: PANTOPRAZOLE SODIUM 40 MG/VIAL (PROTONIX) IVP SCH ×2 (08:26→21:32)
[2022-08-18] MEDS: FUROSEMIDE 40 MG TABLET PO SCH (08:26)
[2022-08-18] MEDS: PREGABALIN 25 MG CAPSULE (LYRICA) PO SCH ×2 (08:27→21:41)
[2022-08-18] MEDS: METOCLOPRAMIDE HCL 10 MG TABLET PO SCH (08:27)
[2022-08-18] MEDS: FLUoxetine HCL 20 MG CAPSULE (PROzac) PO SCH (08:27)
[2022-08-18] MEDS: ALPRAZolam 0.25 MG TABLET PO SCH (08:28)
[2022-08-18] MEDS: FLECAINIDE ACETATE 50 MG TABLET (TAMBOCOR) PO SCH (08:28)
[2022-08-18] MEDS: lisinopriL 20 MG TABLET PO SCH (08:30)
[2022-08-18] MEDS ORDERED: FUROSEMIDE 20 MG TABLET PO SCH (09:00)
[2022-08-18] MEDS ORDERED: FLUoxetine HCL 20 MG CAPSULE (PROzac) PO SCH (09:00)
[2022-08-18] MEDS ORDERED: METOPROLOL SUCCINATE 25 MG TAB.SR.24H (TOPROL XL) PO SCH (09:00)
[2022-08-18 13:45] VITALS: BP_SYST 161
[2022-08-18 16:00] VITALS: BP_SYST 148
--- NOTE | 2022-08-18 16:45 | NUR ---
CONSENT SIGNED PER PATIENT, DR. MINA CAME IN TO TALK TO HER ABOUT EGD AND COLONOSCOPY. VERBALIZED UNDERSTANDING OF PROCEDURE. CONSENT SIGNED.
[2022-08-18] MEDS ORDERED: GOLYTELY / COLYTE SOLUTION 4 LITERS PO ONE (17:00)
--- NOTE | 2022-08-18 17:08 | NUR ---
RD Recommendations *Recommend Cardiac; Consistent Carb Diet Please refer to RD Assessment for details TERI BARCLAY Addendum: 08/18/22 at [address] Amended: Links added.
[2022-08-18] MEDS: ACETAMINOPHEN 325 MG TABLET PO PRN ×2 (17:30→21:34)
--- NOTE | 2022-08-18 18:31 | NUR ---
CLOSING NOTES RESTING. ALL NEEDS MET THROUGHOUT SHIFT. SAFETY ENSURED.
[2022-08-18 20:00] VITALS: BP_SYST 153
[2022-08-18] MEDS ORDERED: INSULIN GLARGINE 100 UNITS/ML, 10 ML VIAL SUBCUT SCH (21:00)
[2022-08-18] MEDS: CARVEDILOL 12.5 MG TABLET (COREG) PO SCH (21:32)
[2022-08-18] MEDS: ZOLPIDEM TARTRATE 5 MG TABLET PO PRN (21:33)
[2022-08-18] MEDS: ATORVASTATIN 20 MG TABLET PO SCH (21:33)
--- NOTE | 2022-08-18 23:28 | NUR ---
Right AC New IV start 22 Gauge flush wnl , site clean patient tolerate .
--- NOTE | 2022-08-18 23:30 | NUR ---
TYLENOL 650 MG po given for general pain and helpful , assist back to bed no SOB noted / .
[2022-08-19 01:00] VITALS: BP_SYST 145
--- NOTE | 2022-08-19 02:01 | NUR ---
Hourly Rounding patient awake out of bed in chair verbally indicative FALL MEASURES implemented call jernigan with patient / .
[2022-08-19] MEDS: LEVOTHYROXINE SODIUM 0.075 MG TABLET PO SCH (07:02)
[2022-08-19] MEDS: LEVOTHYROXINE SODIUM 0.1 MG TABLET PO SCH (07:02)
[2022-08-19] MEDS: INSULIN REGULAR, HUMAN 100 UNITS/ML, 3 ML VIAL (humuLIN R) SUBCUT PRN ×4 (07:05→22:05)
[2022-08-19 07:18] LABS: BASOPHILS # (AUTO) 0.1 K/uL (0.0-0.2); BASOPHILS % (AUTO) 0.7 % (0.0-2.0); EOSINOPHILS # (AUTO) 0.2 K/uL (0.0-0.4); EOSINOPHILS % (AUTO) 2.9 % (0.0-4.0); HEMATOCRIT 32.6 % (36-48); HEMOGLOBIN 10.7 g/dL (12.0-16.0); LYMPHOCYTES # (AUTO) 2.3 K/uL (1.0-5.5); LYMPHOCYTES % (AUTO) 29.9 % (20.5-51.5); MEAN CORPUSCULAR HEMOGLOBIN 27 pg (27-31); MEAN CORPUSCULAR HGB CONC 33 % (32-36); MEAN CORPUSCULAR VOLUME 82 fL (79.0-98.0); MONOCYTES % (AUTO) 12.7 % (1.7-9.3); NEUTROPHILS # (AUTO) 4.2 K/uL (1.8-7.7); NEUTROPHILS % (AUTO) 53.8 % (40.0-70.0); PLATELET COUNT (AUTO) 351 K/uL (130-430); RED BLOOD CELL COUNT(AUTO) 3.98 MIL/uL (4.2-6.2); RED CELL DISTRIBUTION WIDTH 16.1 % (9.0-15.0); WHITE BLOOD COUNT (AUTO) 7.7 K/uL (4.8-10.8)
[2022-08-19 07:23] LABS: PROTHROMBIN TIME 10.6 SECS (9.5-12.5)
[2022-08-19 07:28] LABS: ALANINE AMINOTRANSFERASE 19 U/L (12-78); ALBUMIN 2.9 g/dL (3.4-4.8); ANION GAP 8 (5-15); ASPARTATE AMINOTRANSFERASE 15 U/L (10-37); CALCIUM 8.7 mg/dL (8.4-11.0); CHLORIDE 99 mmol/L (98-107); CREATININE 0.79 mg/dL (0.55-1.30); GLUCOSE 225 mg/dL (70-99); TOTAL BILIRUBIN 0.5 mg/dL (0.0-1.0); UREA NITROGEN, BLOOD 11 mg/dL (8-21)
[2022-08-19 08:00] VITALS: BP_SYST 143
[2022-08-19] MEDS: PANTOPRAZOLE SODIUM 40 MG/VIAL (PROTONIX) IVP SCH ×2 (08:19→22:01)
[2022-08-19] MEDS: CARVEDILOL 12.5 MG TABLET (COREG) PO SCH ×2 (08:20→21:59)
[2022-08-19] MEDS: FUROSEMIDE 40 MG TABLET PO SCH (08:20)
[2022-08-19] MEDS: METOCLOPRAMIDE HCL 10 MG TABLET PO SCH (08:21)
[2022-08-19] MEDS: FLUoxetine HCL 20 MG CAPSULE (PROzac) PO SCH (08:21)
[2022-08-19] MEDS: FLECAINIDE ACETATE 50 MG TABLET (TAMBOCOR) PO SCH (08:22)
[2022-08-19] MEDS: PREGABALIN 25 MG CAPSULE (LYRICA) PO SCH ×2 (08:22→22:00)
[2022-08-19] MEDS: lisinopriL 20 MG TABLET PO SCH (08:22)
[2022-08-19] MEDS: ALPRAZolam 0.25 MG TABLET PO SCH ×2 (09:00→18:49)
[2022-08-19] MEDS ORDERED: INSULIN GLARGINE 100 UNITS/ML, 10 ML VIAL SUBCUT ONE (10:00)
[2022-08-19 11:58] VITALS: BP_SYST 123
[2022-08-19] MEDS ORDERED: BISACODYL 5 MG TABLET.DR (DULCOLAX) PO ONE (14:00)
[2022-08-19] MEDS: MEROPENEM 1 GM in NS 100 ML IV SCH ×2 (14:07→21:58)
[2022-08-19] MEDS ORDERED: GOLYTELY / COLYTE SOLUTION 4 LITERS PO ONE (15:00)
[2022-08-19 17:15] VITALS: BP_SYST 120
--- NOTE | 2022-08-19 18:34 | NUR ---
Pt has finished bowel prep and bowels are now clear. Pt is now on isolation for ESBL urine. UAL. No c/o pain throughout the shift. Romeo catheter in place with large amount of clear yellow urine output.
[2022-08-19 20:00] VITALS: BP_SYST 147
[2022-08-19] MEDS ORDERED: INSULIN GLARGINE 100 UNITS/ML, 10 ML VIAL SUBCUT SCH (21:00)
[2022-08-19] MEDS: ATORVASTATIN 20 MG TABLET PO SCH (22:00)
[2022-08-19] MEDS: ZOLPIDEM TARTRATE 5 MG TABLET PO PRN (22:01)
[2022-08-20 00:03] VITALS: BP_SYST 142
[2022-08-20 05:59] LABS: BASOPHILS % (AUTO) 0.5 % (0.0-2.0); EOSINOPHILS # (AUTO) 0.2 K/uL (0.0-0.4); EOSINOPHILS % (AUTO) 3.1 % (0.0-4.0); HEMATOCRIT 31.3 % (36-48); HEMOGLOBIN 10.5 g/dL (12.0-16.0); LYMPHOCYTES # (AUTO) 2.3 K/uL (1.0-5.5); LYMPHOCYTES % (AUTO) 30.5 % (20.5-51.5); MEAN CORPUSCULAR HEMOGLOBIN 27 pg (27-31); MEAN CORPUSCULAR HGB CONC 34 % (32-36); MEAN CORPUSCULAR VOLUME 82 fL (79.0-98.0); MONOCYTES # (AUTO) 0.9 K/uL (0.0-1.0); MONOCYTES % (AUTO) 12.3 % (1.7-9.3); NEUTROPHILS # (AUTO) 4.1 K/uL (1.8-7.7); NEUTROPHILS % (AUTO) 53.6 % (40.0-70.0); PLATELET COUNT (AUTO) 353 K/uL (130-430); RED BLOOD CELL COUNT(AUTO) 3.84 MIL/uL (4.2-6.2); RED CELL DISTRIBUTION WIDTH 15.9 % (9.0-15.0); WHITE BLOOD COUNT (AUTO) 7.7 K/uL (4.8-10.8)
[2022-08-20 06:15] LABS: ANION GAP 5 (5-15); CALCIUM 8.4 mg/dL (8.4-11.0); CHLORIDE 98 mmol/L (98-107); CREATININE 0.68 mg/dL (0.55-1.30); GLUCOSE 163 mg/dL (70-99); UREA NITROGEN, BLOOD 8 mg/dL (8-21)
[2022-08-20] MEDS: LEVOTHYROXINE SODIUM 0.1 MG TABLET PO SCH (06:22)
[2022-08-20] MEDS: MEROPENEM 1 GM in NS 100 ML IV SCH ×3 (06:22→21:20)
--- NOTE | 2022-08-20 06:30 | NUR ---
Blood sugar 163 no insulin coverage has been given due to NPO status
--- NOTE | 2022-08-20 06:45 | NUR ---
Miss Hector has been assessed as indicated. She continues to deny pain. At 2200 this shift she had last brown stool. AM tap water enema was completed.This was poorly retained. outflow was clear no further stool output noted. She is aware of NPO status. She aware and compliant with the plan for GI studies this afternoon. She has a diego with adequate clear urine output. She states that she straight caths at home for retention. She is resting quietly.
[2022-08-20] MEDS: LEVOTHYROXINE SODIUM 0.075 MG TABLET PO SCH (06:50)
--- NOTE | 2022-08-20 07:15 | NUR ---
Hand off has been given Jane
[2022-08-20 08:00] VITALS: BP_SYST 135
[2022-08-20] MEDS: PANTOPRAZOLE SODIUM 40 MG/VIAL (PROTONIX) IVP SCH ×2 (08:29→21:18)
[2022-08-20] MEDS ORDERED: POTASSIUM CHLORIDE 20 MEQ TAB.PRT.SR PO ONE (10:00)
[2022-08-20] MEDS ORDERED: MIDAZOLAM HCL 5 MG/5 ML VIAL ONE (10:05)
[2022-08-20] MEDS ORDERED: fentaNYL CITRATE/PF 100 MCG/2 ML AMP ONE (10:05)
[2022-08-20] MEDS ORDERED: DIATR MEGLU/DIATRIZ SOD 30 ML SOLUTION PO ONE (10:55)
[2022-08-20] MEDS: CARVEDILOL 12.5 MG TABLET (COREG) PO SCH ×2 (11:20→21:19)
[2022-08-20] MEDS: PREGABALIN 25 MG CAPSULE (LYRICA) PO SCH ×2 (11:21→21:21)
[2022-08-20] MEDS: FLECAINIDE ACETATE 50 MG TABLET (TAMBOCOR) PO SCH (11:21)
[2022-08-20] MEDS: lisinopriL 20 MG TABLET PO SCH (11:22)
[2022-08-20] MEDS: METOCLOPRAMIDE HCL 10 MG TABLET PO SCH (11:22)
[2022-08-20] MEDS: FLUoxetine HCL 20 MG CAPSULE (PROzac) PO SCH (11:22)
[2022-08-20] MEDS: ALPRAZolam 0.25 MG TABLET PO SCH ×2 (11:23→17:36)
[2022-08-20 16:00] VITALS: BP_SYST 142
[2022-08-20] MEDS: INSULIN REGULAR, HUMAN 100 UNITS/ML, 3 ML VIAL (humuLIN R) SUBCUT PRN ×2 (17:14→21:16)
--- NOTE | 2022-08-20 18:22 | NUR ---
Pt had denis today. Now having diarrhea. 4 times today. Incontinent of stool, can't make it to [facility] in time. Romeo catheter in place due to urinary retention. Pt had at home before and should be discharged with. Ate 100% of dinner. No c/o pain today. Pt requests to have Xanax at 1730 instead of 0900.
[2022-08-20 20:00] VITALS: BP_SYST 149
--- NOTE | 2022-08-20 20:00 | NUR ---
Received report from day shift nurse. Pt is awake in bed, alert and oriented x4. On room air. IV intact, saline locked. Romeo intact for urinary retention. S/p colonoscopy with polyp removal, endoclips and biopsy. No new complaints or distress noted. Call light within reach. Safety precautions enforced. Will continue to monitor.
[2022-08-20] MEDS ORDERED: INSULIN GLARGINE 100 UNITS/ML, 10 ML VIAL SUBCUT SCH (21:00)
[2022-08-20] MEDS: ATORVASTATIN 20 MG TABLET PO SCH (21:19)
[2022-08-20] MEDS: ZOLPIDEM TARTRATE 5 MG TABLET PO PRN (21:20)
[2022-08-21] VITALS: BP_SYST 150
--- NOTE | 2022-08-21 | NUR ---
VSS. Meds administered per order. Pt making mucous like BM. Changed chucks. Ice chips given. No acute distress noted. Call light within reach.
[2022-08-21] MEDS: ACETAMINOPHEN 325 MG TABLET PO PRN (04:19)
[2022-08-21] MEDS: MEROPENEM 1 GM in NS 100 ML IV SCH ×2 (06:22→12:58)
[2022-08-21] MEDS: LEVOTHYROXINE SODIUM 0.075 MG TABLET PO SCH (06:23)
[2022-08-21] MEDS: LEVOTHYROXINE SODIUM 0.1 MG TABLET PO SCH (06:23)
--- NOTE | 2022-08-21 06:55 | NUR ---
Pt awake in bed. Meds administered per order. BG 146. New IV placed in 22G right forearm. Romeo intact. No new complaints or distress noted. Call light within reach. Safety precautions enforced. All needs met. Will endorse to day shift nurse.
[2022-08-21 07:04] LABS: BASOPHILS # (AUTO) 0.1 K/uL (0.0-0.2); BASOPHILS % (AUTO) 0.7 % (0.0-2.0); EOSINOPHILS # (AUTO) 0.3 K/uL (0.0-0.4); EOSINOPHILS % (AUTO) 3.3 % (0.0-4.0); HEMATOCRIT 31.7 % (36-48); HEMOGLOBIN 10.3 g/dL (12.0-16.0); LYMPHOCYTES # (AUTO) 2.5 K/uL (1.0-5.5); LYMPHOCYTES % (AUTO) 29.7 % (20.5-51.5); MEAN CORPUSCULAR HEMOGLOBIN 27 pg (27-31); MEAN CORPUSCULAR HGB CONC 33 % (32-36); MEAN CORPUSCULAR VOLUME 83 fL (79.0-98.0); MONOCYTES # (AUTO) 1.2 K/uL (0.0-1.0); MONOCYTES % (AUTO) 14.1 % (1.7-9.3); NEUTROPHILS # (AUTO) 4.5 K/uL (1.8-7.7); NEUTROPHILS % (AUTO) 52.2 % (40.0-70.0); PLATELET COUNT (AUTO) 338 K/uL (130-430); RED BLOOD CELL COUNT(AUTO) 3.84 MIL/uL (4.2-6.2); RED CELL DISTRIBUTION WIDTH 16.2 % (9.0-15.0); WHITE BLOOD COUNT (AUTO) 8.6 K/uL (4.8-10.8)
[2022-08-21 07:52] LABS: ANION GAP 8 (5-15); CALCIUM 8.9 mg/dL (8.4-11.0); CHLORIDE 99 mmol/L (98-107); CREATININE 0.73 mg/dL (0.55-1.30); GLUCOSE 148 mg/dL (70-99); UREA NITROGEN, BLOOD 7 mg/dL (8-21)
[2022-08-21 08:00] VITALS: BP_SYST 117
[2022-08-21] MEDS: FLUoxetine HCL 20 MG CAPSULE (PROzac) PO SCH (08:47)
[2022-08-21] MEDS: lisinopriL 20 MG TABLET PO SCH (08:47)
[2022-08-21] MEDS: CARVEDILOL 12.5 MG TABLET (COREG) PO SCH (08:47)
[2022-08-21] MEDS: FLECAINIDE ACETATE 50 MG TABLET (TAMBOCOR) PO SCH (08:48)
[2022-08-21] MEDS: METOCLOPRAMIDE HCL 10 MG TABLET PO SCH (08:48)
[2022-08-21] MEDS: PANTOPRAZOLE SODIUM 40 MG/VIAL (PROTONIX) IVP SCH (08:49)
[2022-08-21] MEDS: PREGABALIN 25 MG CAPSULE (LYRICA) PO SCH (08:49)
[2022-08-21 11:20] VITALS: BP_SYST 116
[2022-08-21] MEDS: INSULIN REGULAR, HUMAN 100 UNITS/ML, 3 ML VIAL (humuLIN R) SUBCUT PRN (11:58)
[2022-08-21 15:10] VITALS: BP_SYST 157
[2022-08-21] MEDS ORDERED: NYSTATIN 15 GM TOPICAL POWDER TP SCH (15:15)
[2022-08-21] MEDS ORDERED: HYDROCORTISONE 1%, 28.35 GM TOPICAL CREAM TP PRN ×2 (15:15)
--- NOTE | 2022-08-21 15:54 | NUR ---
Pt is having multiple BMs. Will collect for c-diff. Pt also has a dermatitis in her inguinal folds. Hydrocortisone and Nystatin powder ordered. Also urology consult for possible irritation caused by catheter. Per Kay case management with [employer] possible bed available at [facility]. Endorsed and reported off to JAIDEN French
[2022-08-21] MEDS ORDERED: APIXABAN 2.5 MG TABLET PO ONE (16:30)
[2022-08-21] MEDS ORDERED: MERO1VIA23 IV (18:32)
[2022-08-21] MEDS ORDERED: NYST15PO2 TP (18:32)
[2022-08-21 18:34] VITALS: BP_SYST 132
--- NOTE | 2022-08-21 19:04 | NUR ---
REPORT CALLED TO JAMILAH SILVERIO SPOKE WITH DANIE ROBERTS, NO S/S OF ANY DISTRESS, IV AND F/C WILL STAY IN PER ORDERS, TRANSPORT HERE ([facility]). LOADING PATIENT ONTO RNEY
[2022-08-21] MEDS ORDERED: APIXABAN 2.5 MG TABLET PO SCH (21:00)
== END 2022-08-21 19:20 | DRG 394 ==
LOC: SED 19:24 → STU 21:52 → SMU 08-17 09:18
PROVIDERS: ADMIT Specialist; ATTEND Family Medicine
PROC: 0DB68ZX Excision of Stomach, Via Natural or Artificial Opening Endoscopic, Diagnostic (ICD-10-PCS; principal; 2022-08-20 14:30)
PROC: 0DBP8ZX Excision of Rectum, Via Natural or Artificial Opening Endoscopic, Diagnostic (ICD-10-PCS; 2022-08-20 14:30)
PROC: 0DBN8ZZ Excision of Sigmoid Colon, Via Natural or Artificial Opening Endoscopic (ICD-10-PCS; 2022-08-20 14:30)
DX: K63.5 Polyp of colon (principal); D62 Acute posthemorrhagic anemia; N39.0 Urinary tract infection, site not specified; Z68.42 Body mass index [BMI] 45.0-49.9, adult; K29.70 Gastritis, unspecified, without bleeding; K64.8 Other hemorrhoids; K62.1 Rectal polyp; I11.0 Hypertensive heart disease with heart failure; I48.91 Unspecified atrial fibrillation; L30.8 Other specified dermatitis; E78.00 Pure hypercholesterolemia, unspecified; E66.01 Morbid (severe) obesity due to excess calories; I50.9 Heart failure, unspecified; D64.9 Anemia, unspecified; E11.9 Type 2 diabetes mellitus without complications; Z79.899 Other long term (current) drug therapy; Z79.01 Long term (current) use of anticoagulants; L23.9 Allergic contact dermatitis, unspecified cause; L30.2 Cutaneous autosensitization
CPT/HCPCS: 36415; 43239; 45381; 45382; 45385; 71045; 76376; 76770; 80048; 80053; 81000; 83037; 83880; 84484; 85025; 85610-TC; 86886; 86900; 86901; 87081; 87086; 88305; 88312; 88313; 96361; 96374; 99285; C9113; G0378; J1815; J2185; J2250; J3010; J8597; Q9964